=== PATIENT | male | born 1980 | race Caucasian/White ===

== ENCOUNTER 2017-10-27 18:52 | Emergency (ER) | payer MEDICAID, OTHER ==
[2017-10-27 21:48] LABS: URINE PH (Dip) POC 6.5 (5.0-8.5)
[2017-10-27 21:48] LABS: URINE BLOOD (Dip) POC Negative (NEGATIVE); URINE GLUCOSE (Dip) POC Negative (NEGATIVE); URINE KETONES (Dip) POC Negative (NEGATIVE); URINE LEUKOCYTE EST (Dip) POC Negative (NEGATIVE); URINE NITRITE (Dip) POC Negative (NEGATIVE); URINE TOTAL PROTEIN POC Negative (NEGATIVE)
[2017-10-27] MEDS: IBUPROFEN 600 MG TAB PO (21:52)
[2017-10-27] MEDS: CEFTRIAXONE 250 MG INJ IM (21:53)
[2017-10-27] MEDS: LIDOCAINE 1% (MDV) 20 ML INJ SC (21:53)
== END 2017-10-27 23:11 | disposition home or self-care (01) ==
LOC: FTE 23:11
DX: M54.5 Low back pain (principal); R36.9 Urethral discharge, unspecified
CPT/HCPCS: 72100; 81003; 87591; 96372; 99284-25

== ENCOUNTER 2017-11-10 21:58 | Emergency (ER) | payer MEDICAID ==
[2017-11-10] MEDS: HYDROCODONE/APAP (5/325) TAB PO (23:06)
[2017-11-10] MEDS: DOXYCYCLINE 100 MG TAB PO (23:06)
[2017-11-10] MEDS: CEFTRIAXONE 250 MG INJ IM (23:06)
== END 2017-11-11 00:35 | disposition home or self-care (01) ==
LOC: FTE 11-11 00:35
DX: N45.1 Epididymitis (principal); F17.210 Nicotine dependence, cigarettes, uncomplicated
CPT/HCPCS: 76870; 96372; 99285-25

== ENCOUNTER 2017-11-24 22:04 | Emergency (ER) | payer MEDICAID, OTHER ==
[2017-11-25] MEDS: KETOROLAC 30 MG INJ IM (02:16)
== END 2017-11-25 02:30 | disposition home or self-care (01) ==
LOC: FTE 22:04
DX: N50.812 Left testicular pain (principal); N50.811 Right testicular pain; F17.210 Nicotine dependence, cigarettes, uncomplicated
CPT/HCPCS: 76870; 96372; 99285-25

== ENCOUNTER 2018-01-09 11:34 | Emergency (ER) | payer MEDICAID | END 2018-01-09 13:36 | disposition home or self-care (01) | LOC: FTE 11:34 | DX: M77.11 Lateral epicondylitis, right elbow (principal); Z87.891 Personal history of nicotine dependence | CPT/HCPCS: 73080; 73080-RT; 99283-25 ==

== ENCOUNTER 2018-08-19 00:10 | Emergency (ER) | payer SELFPAY, MEDICAID | END 2018-08-19 00:30 | disposition left against medical advice (07) | LOC: E/R 00:10 | DX: Z53.21 Procedure and treatment not carried out due to patient leaving prior to being seen by health care provider (principal) ==

== ENCOUNTER 2018-11-03 11:40 | Emergency (ER) | payer MEDICAID, OTHER ==
[2018-11-03 13:59] LABS: URINE BLOOD (Dip) POC Negative (NEGATIVE); URINE GLUCOSE (Dip) POC Negative (NEGATIVE); URINE KETONES (Dip) POC Trace (NEGATIVE); URINE LEUKOCYTE EST (Dip) POC Negative (NEGATIVE); URINE NITRITE (Dip) POC Positive (NEGATIVE); URINE TOTAL PROTEIN POC 1+ (NEGATIVE)
== END 2018-11-03 14:55 | disposition home or self-care (01) ==
LOC: FTE 11:40
DX: R30.0 Dysuria (principal)
CPT/HCPCS: 81003; 87086; 87591; 99283

== ENCOUNTER → 2018-11-13 | Emergency (ER) | payer MEDICAID ==
[2018-11-13] MEDS: AZITHROMYCIN 500 MG TAB PO (18:18)
== END | disposition home or self-care (01) ==
LOC: FTE 16:27
DX: A74.9 Chlamydial infection, unspecified (principal)
CPT/HCPCS: 99283; Z7502

== ENCOUNTER 2018-11-18 18:44 | Emergency (ER) | payer SELFPAY, MEDICAID | END 2018-11-18 19:25 | disposition left against medical advice (07) | LOC: E/R 18:44 | DX: Z53.21 Procedure and treatment not carried out due to patient leaving prior to being seen by health care provider (principal) ==

== ENCOUNTER 2018-11-23 23:49 | Emergency (ER) | payer MEDICAID ==
[2018-11-24] MEDS: KETOROLAC 30 MG INJ IM (00:35)
== END 2018-11-24 01:51 | disposition home or self-care (01) ==
LOC: FTE 23:49
DX: N50.819 Testicular pain, unspecified (principal)
CPT/HCPCS: 76870; 81003; 96372; 99285-25